=== PATIENT | male | born 1980 | race Caucasian/White ===

== ENCOUNTER 2024-05-16 10:01 | Emergency (ER) | payer BC ==
[~2024-05-16] VITALS: Ht 162.6 cm; Wt 72.6 kg
[2024-05-16 10:07] VITALS: BP_SYST 122; PULSE 63; RESP 20; TEMP 98.3; O2SAT 98
[2024-05-16] MEDS ORDERED: NABU-138 PO (11:31)
[2024-05-16 11:42] VITALS: BP_SYST 122; PULSE 63; RESP 20; TEMP 98.3; O2SAT 98
== END 2024-05-16 11:43 | disposition home or self-care (01) ==
LOC: SED 10:01
DX: S40.012A Contusion of left shoulder, initial encounter (principal); V29.888A Rider (driver) (passenger) of other motorcycle injured in other specified transport accidents, initial encounter; Y93.89 Activity, other specified; Y92.89 Other specified places as the place of occurrence of the external cause; Y99.8 Other external cause status
CPT/HCPCS: 73030; 99283